=== PATIENT | male | born 1995 | race Caucasian/White ===

== ENCOUNTER 2020-09-10 13:59 | Emergency (ER) | payer SELFPAY ==
[~2020-09-10] VITALS: Ht 170.2 cm; Wt 70.0 kg
[2020-09-10 14:19] VITALS: BP 120/73
[2020-09-10] MEDS ORDERED: LORAZEPAM 1MG TABLET PO ONE (15:00)
== END 2020-09-10 16:15 | disposition home or self-care (01) ==
LOC: ER 13:59
DX: F14.129 Cocaine abuse with intoxication, unspecified (principal); F41.9 Anxiety disorder, unspecified
CPT/HCPCS: 99283

== ENCOUNTER 2025-04-23 15:42 | Emergency (ER) | payer SELFPAY ==
[~2025-04-23] VITALS: Ht 167.6 cm; Wt 73.0 kg
[2025-04-23 15:56] VITALS: BP 100/67; RESP 16; TEMP 36.6; O2SAT 99
[2025-04-23 15:57] VITALS: PULSE 71; O2SAT 97
[2025-04-23] MEDS: LIDOCAINE HCL 1% 20ML VIAL INFIL ONE (16:22)
[2025-04-23] MEDS: ACETAMINOPHEN 325MG TABLET PO ONE (16:22)
== END 2025-04-23 16:57 | disposition home or self-care (01) ==
LOC: ER 15:42
DX: S81.812A Laceration without foreign body, left lower leg, initial encounter (principal); X58.XXXA Exposure to other specified factors, initial encounter; Y93.89 Activity, other specified; Y92.89 Other specified places as the place of occurrence of the external cause; Y99.8 Other external cause status
CPT/HCPCS: 99282; 12002; J2003

== ENCOUNTER 2025-05-07 11:47 | Emergency (ER) | payer SELFPAY ==
[~2025-05-07] VITALS: Ht 167.6 cm; Wt 73.0 kg
[2025-05-07 11:51] VITALS: O2SAT 99
[2025-05-07 12:31] VITALS: BP 125/72; PULSE 78; RESP 18; TEMP 36.7; O2SAT 99
[2025-05-07] MEDS ORDERED: CEPH500T MT (12:32)
[2025-05-07] MEDS ORDERED: SULF1TAB48 MT (12:32)
== END 2025-05-07 12:39 | disposition home or self-care (01) ==
LOC: ER 11:47
DX: S91.311D Laceration without foreign body, right foot, subsequent encounter (principal); X58.XXXD Exposure to other specified factors, subsequent encounter
CPT/HCPCS: 99283; Z7610 ×2